=== PATIENT | female | born 1960 | race African-American/Black ===

== ENCOUNTER 2024-08-23 11:49 | Emergency (ER) | payer OTHER ==
[~2024-08-23] VITALS: Ht 167.6 cm; Wt 70.8 kg
[~2024-08-23 11:49] MED LIST: BENA20TA PO; METO-50 PO; TYLENOL#4 PO
[2024-08-23 11:51] VITALS: BP 194/104; PULSE 110; RESP 16; TEMP 98.5; O2SAT 95
[2024-08-23 12:19] VITALS: TEMP 98.5
[2024-08-23] MEDS ORDERED: ACET-503 PO (13:15)
[2024-08-23] MEDS ORDERED: AMLO2.5T PO (13:15)
[2024-08-23] MEDS ORDERED: amLODIPine 5 MG TAB PO ONE (13:20)
[2024-08-23] MEDS ORDERED: METO100T22 PO (13:26)
[2024-08-23] MEDS: METOPROLOL 50 MG TAB PO ONE (13:43)
[2024-08-23 13:44] VITALS: BP 160/98; PULSE 88; RESP 18; O2SAT 99
== END 2024-08-23 13:45 | disposition home or self-care (01) ==
LOC: MED 11:49
DX: I10 Essential (primary) hypertension (principal); R03.0 Elevated blood-pressure reading, without diagnosis of hypertension; Z91.148 Patient's other noncompliance with medication regimen for other reason; Z86.69 Personal history of other diseases of the nervous system and sense organs; Z79.899 Other long term (current) drug therapy; Z88.0 Allergy status to penicillin
CPT/HCPCS: 99283

== ENCOUNTER 2024-08-23 14:52 | Emergency (ER) | payer OTHER ==
[~2024-08-23] VITALS: Ht 167.6 cm; Wt 72.6 kg
[~2024-08-23 14:52] MED LIST changes: +ACET-503 PO; +AMLO2.5T PO; +METO100T22 PO
[2024-08-23 15:42] VITALS: BP 187/107; PULSE 64; RESP 18; TEMP 98; O2SAT 100
[2024-08-23 15:51] VITALS: O2SAT 100
[2024-08-23] MEDS: NACL 0.9% 1,000 ML IV ONE (16:30)
== END 2024-08-23 18:20 | disposition home or self-care (01) ==
LOC: MED 14:52
DX: E86.0 Dehydration (principal); I10 Essential (primary) hypertension; Z86.69 Personal history of other diseases of the nervous system and sense organs; Z79.899 Other long term (current) drug therapy; Z88.0 Allergy status to penicillin
CPT/HCPCS: 96360; 99283; J7030